=== PATIENT | male | born 1990 | race Caucasian/White ===

== ENCOUNTER 2022-02-15 02:42 | Emergency (ER) | payer OTHER ==
[2022-02-15 03:02] VITALS: BP 136/89; PULSE 63; RESP 18; BMI 22.4
[2022-02-15] MEDS ORDERED: AMOX TR/POT CLAV 875MG/125MG TABLETS (FP) PO ONE (03:07)
[2022-02-15] MEDS ORDERED: ACETAMINOPHEN 325 MG TABLET (FP) PO ONE (03:07)
[2022-02-15] MEDS ORDERED: DIPHTH,PERTUSS(ACELL),TET 0.5 ML DISP.SYRIN IM ONE ×4 (03:08→03:21)
[2022-02-15] MEDS ORDERED: ACETAMINOPHEN 325 MG TABLET (FP) ONE (03:14)
== END 2022-02-15 03:54 | disposition home or self-care (01) ==
LOC: JER 02:42
PROC: 3E0234Z Introduction of Serum, Toxoid and Vaccine into Muscle, Percutaneous Approach (ICD-10-PCS; principal; 2022-02-15)
DX: L03.113 Cellulitis of right upper limb (principal)
CPT/HCPCS: 90715; 99283-25